=== PATIENT | male | born 1960 | race Caucasian/White ===

== ENCOUNTER 2018-06-25 12:01 | Observation (INO) ==
[2018-06-25] MEDS ORDERED: Vancomycin Consult Pharmacy 1 EACH OTHER SCH ×2 (15:58→22:00)
[2018-06-25] MEDS ORDERED: Vancomycin Inj 1 GM/200 ML PIGGYBACK IV.SIG SCH (16:00)
[2018-06-25] MEDS ORDERED: Dextrose 50% in Water 50 ML Vial IV.PUSH PRN (16:12)
[2018-06-25] MEDS ORDERED: Piperacil/Tazo 3.375 GM Premix 50 ML IV.SIG SCH (17:00)
[2018-06-25] MEDS ORDERED: Temazepam 15 MG Capsule PO PRN (21:00)
[2018-06-25] MEDS: Insulin NovoLOG Aspart Correctional Sugar Inj SQ SCH ×2 (23:10→23:11)
[2018-06-25] MEDS: Piperacil/Tazo 3.375 GM Premix 50 ML IV.SIG SCH (23:11)
[2018-06-26] MEDS: Piperacil/Tazo 3.375 GM Premix 50 ML IV.SIG SCH ×4 (02:43→17:21)
[2018-06-26] MEDS: Vancomycin Inj 1,750 MG in Sodium Chlor 0.9% Inj 500 ML IV.SIG SCH ×2 (03:10→13:35)
[2018-06-26 06:33] LABS: Baso % (Auto) 0.3 % (0.0-2.0); Eos # (Auto) 0.3 th/mm3 (0.0-0.4); Eos % (Auto) 4.3 % (0.0-4.0); Hemoglobin 11.5 gm/dL (13.0-17.0); Lymph # (Auto) 1.7 th/mm3 (1.0-4.8); Lymph % (Auto) 25.7 % (9.0-44.0); Mean Corpuscular Hemoglobin 29.1 pg (27.0-34.0); Mean Corpuscular Volume 88.1 fL (80.0-100.0); Mean Platelet Volume 8.9 fL (7.0-11.0); Mono # (Auto) 0.5 th/mm3 (0.0-0.9); Mono % (Auto) 7.9 % (0.0-8.0); Neut # (Auto) 4.3 th/mm3 (1.8-7.7); Neut % (Auto) 61.8 % (16.0-70.0); Platelet Count 145 th/mm3 (150-450); Red Blood Count 3.97 mil/mm3 (4.50-5.90); Red Cell Distribution Width 11.4 % (11.6-17.2); White Blood Count 6.8 th/mm3 (4.0-11.0)
[2018-06-26 06:41] LABS: Chloride 103 meq/L (98-107); Sodium 138 meq/L (136-145)
[2018-06-26 06:48] LABS: Calcium 8.2 mg/dL (8.5-10.1)
[2018-06-26 06:49] LABS: Anion Gap 5 meq/L (5-15); Blood Urea Nitrogen 12 mg/dL (7-18); Glucose,Random 187 mg/dL (74-106)
[2018-06-26 06:52] LABS: Glomerular Filtration Rate Greater Than 89 mL/min (>89)
[2018-06-26] MEDS: Insulin NovoLOG Aspart Correctional Sugar Inj SQ SCH ×4 (07:44→21:35)
--- NOTE | 2018-06-26 10:18 | P.HP ---
History of Present Illness Primary Care Physician: Praneeth Moya Chief Complaint: Right foot second toe pain and infection History of Present Illness: 57-year-old male with known history of untreated diabetes, hypertension who presented to the hospital because of worsening swelling, pain, infection of the right foot second digit. Patient states that approximately 2 weeks ago he had a corn on his toe and he removed it with a razor blade. Patient was doing well up until 3 days ago when he states that his toe just blew up. Started having significant pain, signs of infection, purulent material. Patient went to the emergency department for evaluation. Patient did have ultrasound done of the lower extremity which did not indicate any embolic event. X-ray did not indicate any acute abnormality other than inflammation. Patient was recommended hospital admission for IV antibiotics. Patient states that he does know he has diabetes but is untreated. He is not taking any blood pressure medications for over a year. Patient denies any fever , chills, chest pain, shortness of breath, nausea, vomiting, polydipsia, polyphagia, polyuria - Diagnosis (1) Diabetic foot infection Inpatient Certification: I certify that the inpatient services were ordered in accordance with Medicare regulations governing the order. This includes certification that hospital inpatient services are reasonable and necessary and in the case of services not specified as inpatient-only under 42 CFR 419.22(n), that they are appropriately provided as inpatient services in accordance to with the 2-midnight benchmark under 43 CFR 412.3(e) Review of Systems All other systems reviewed negative except as stated in HPI Skin/Breast: Reports change in skin color, Reports lesions, Reports non-healing lesions, Reports redness, Reports wounds PMFSH - History History Provided By: Patient - Medical History Medical History: Medical History (Last Reviewed 06/26/18 @ 10:14 by GIORGIO Rendon) Diabetes Hypertension - Surgical History Surgical History: Surgical History (Last Reviewed 06/26/18 @ 10:14 by GIORGIO Rendon) Hx of meniscectomy of right knee - Family History Family History: Family History (Last Updated 06/26/18 @ 10:07 by GIORGIO Rendon) Mother History of diabetes mellitus Father History of diabetes mellitus History of coronary artery disease - Tobacco History Second Hand Smoke Exposure: Yes Tobacco Use In Past 30 Days: Yes Smoking Status: Current every day smoker Tobacco Type: Cigarettes - Alcohol History How Often Do You Have a Drink Containing Alcohol: Never - Substance Use History Substance History: No History of Abuse - Immunization History Tetanus Immunization: Unable to Assess Hx Influenza Vaccine This Season: Yes Medications and Allergies Active Medications: Active Medications Dextrose (D50w Vial) 50 ml IV.PUSH UNSCH PRN PRN Reason: PER HYPOGLYCEMIA PROTOCOL Glucagon (Glucagon Inj) 1 mg OTHER PRN PRN PRN Reason: for Hypoglycemia Protocol Piperacillin/Tazobactam/Dextrose (Zosyn 3.375 Gm Premix) 50 mls @ 100 mls/hr IV.SIG Q6H [facility] Last Infusion: 06/26/18 07:08 Dose: Infused Pharmacy Profile Note (Vancomycin Consult Pharmacy) 0 mls @ 0 mls/hr OTHER UNSCH [facility] Vancomycin HCl 1,750 mg/ (Sodium Chloride) 517.5 mls @ 250 mls/hr IV.SIG Q12H [facility] Last Infusion: 06/26/18 06:18 Dose: Infused Insulin Aspart (Novolog Insulin Correctional Sugar Inj) 0 unit SQ ACHS [facility]; Protocol Last Admin: 06/26/18 07:44 Dose: 3 unit Lactulose (Lactulose Liq) 30 ml PO DAILY PRN PRN Reason: SEVERE CONSITIPATION Lisinopril (Prinivil) 10 mg PO DAILY [facility] Miscellaneous Information ([facility] Ordered Lab Info) 0 each OTHER ONCE@ 1345 ONE Stop: 06/27/18 13:46 Temazepam (Restoril) 15 mg PO HS PRN PRN Reason: INSOMNIA Allergies Allergy/AdvReac Type Severity Reaction Status Date / Time No Known Allergies Allergy Unverified 06/25/18 12:08 Home Medications Medication Instructions Recorded Confirmed Type No Known Home Medications 06/25/18 06/26/18 History Exam Vital signs: Vital Signs 06/25/18 20:00 06/26/18 00:00 06/26/18 08:00 Temperature 97.6 F 98.4 F 96.5 F L Pulse Rate 65 58 L 59 L Respiratory Rate 21 20 20 Blood Pressure 151/82 H 145/78 H 157/79 H Pulse Oximetry 98 97 99 Intake & Output 06/25/18 06/26/18 06/26/18 18:59 06:59 18:59 Intake Total 1070 / 1070 1050 / 1050 Balance 1070 / 1070 1050 / 1050 Weight 98.883 kg Intake: IV 850 / 850 1050 / 1050 LR 1000 mL Inj 1,000 ML @ 100 1000 / 1000 mls/hr IV.CONT .Q10H [facility] Rx#: [id number] Zosyn 3.375 GM Premix 50 ML @ 100 / 100 50 / 50 100 mls/hr IV.SIG Q6H [facility] Rx#: [id number] Vancomycin Inj 1,750 MG In NS 750 / 750 Inj 500 ML @ 250 mls/hr IV.SIG Q12H [facility] Rx#:[id number] Oral 220 / 220 Other: # Voids 1 # Urine Diapers 300 Date of Last Bowel Movement 06/25/18 Weight On Admission 98.883 kg Narrative: GENERAL: Well-developed, well-nourished, in no acute distress. alert and orientated HEENT: Head is normocephalic without any lesions or masses noted. Facial features are symmetric. Eyes: Pupils equal round reactive to light. Extraocular muscles are intact. Conjunctivae were clear. Oropharyngeal: Pharynx without any erythema edema. Tongue is midline without deviation. Buccal mucosa is moist without any masses or lesions NECK: Supple without any masses. Trachea midline no deviation. No JVD, no bruits are appreciated CARDIAC: Regular rhythm, regular rate. S1/S2 are heard. No murmurs gallops or rubs. LUNGS: Clear to auscultation bilaterally. No wheeze, rhonchi or rales. No use of accessory muscles on inspiration or expiration. ABDOMEN: Soft, nontender. Nondistended. Bowel sounds heard in all 4 quadrants. No organomegaly or masses. Negative rebound, negative guarding EXTREMITIES: No edema, pulses are equal bilaterally. No cyanosis or clubbing NEUROLOGY: Mood and affect appear appropriate. Cranial nerves II through XII grossly intact. Muscle strength 5/5 in upper and lower extremities bilaterally. Deep tendon reflexes are 2+ in upper and lower extremities bilaterally. RIGHT FOOT: Second digit has significant abnormality with edema, open wound, purulence, appears to have some epidermal or subcutaneous fluid collections Results - Labs CBC & Chem 7: 06/26/18 05:59 06/26/18 05:59 Labs: Laboratory Results - last 24 hr 06/25/18 06/26/18 06/26/18 23:08 05:59 05:59 CBC w Diff Auto diff final WBC 6.8 RBC 3.97 L Hgb 11.5 L Hct 35.0 L MCV 88.1 D MCH 29.1 MCHC 33.0 RDW 11.4 L Plt Count 145 L MPV 8.9 Neut % (Auto) 61.8 Lymph % (Auto) 25.7 [place] % (Auto) 7.9 Eos % (Auto) 4.3 H Baso % (Auto) 0.3 Neut # (Auto) 4.3 Lymph # (Auto) 1.7 [place] # (Auto) 0.5 Eos # (Auto) 0.3 Baso # (Auto) 0.0 WBC Differential . Differential Comment . Sodium 138 Potassium 4.0 Chloride 103 Carbon Dioxide 30.0 Anion Gap 5 BUN 12 Creatinine 0.64 Estimated GFR Greater than 89 POC Glucose 203 H Random Glucose 187 H D Calcium 8.2 L D 06/26/18 07:06 CBC w Diff WBC RBC Hgb Hct MCV MCH MCHC RDW Plt Count MPV Neut % (Auto) Lymph % (Auto) [place] % (Auto) Eos % (Auto) Baso % (Auto) Neut # (Auto) Lymph # (Auto) [place] # (Auto) Eos # (Auto) Baso # (Auto) WBC Differential Differential Comment Sodium Potassium Chloride Carbon Dioxide Anion Gap BUN Creatinine Estimated GFR POC Glucose 204 H Random Glucose Calcium Caprini VTE Risk Assessment Caprini VTE Risk Assessment: Moderate/High Risk (score >= 2) Caprini Risk Assessment Model: Point Value = 1 Point Value = 2 Point Value = 3 Point Value = 5 Age 41-60 Minor surgery BMI > 25 kg/m2 Swollen legs Varicose veins or History of unexplained or recurrent spontaneous Oral contraceptives or hormone replacement Sepsis (< 1 month) Serious lung disease, including pneumonia (< 1 month) Abnormal pulmonary function Acute myocardial infarction Congestive heart failure (< 1 month) History of inflammatory bowel disease Medical patient at bed rest Age 61-74 Arthroscopic surgery Major open surgery (> 45 min) Laparoscopic surgery (> 45 min) Malignancy Confined to bed (> 72 hours) Immobilizing plaster cast Central venous access Age >= 75 History of VTE Family history of VTE Factor V Leiden Prothrombin [id number] Lupus anticoagulant Anticardiolipin antibodies Elevated serum homocysteine Heparin-induced thrombocytopenia Other congenital or acquired thrombophilia Stroke (< 1 month) Elective arthroplasty Hip, pelvis, or leg fracture Acute spinal cord injury (< 1 month) Prophylaxis Regimen: Total Risk Factor Score Risk Level Prophylaxis Regimen 0-1 Low Early ambulation 2 Moderate Order ONE of the following: *Sequential Compression Device (SCD) *Heparin 5000 units SQ BID 3-4 Higher Order ONE of the following medications: *Heparin 5000 units SQ TID *Enoxaparin/Lovenox 40 mg SQ daily (WT < 150 kg, CrCl > 30 mL/min) *Enoxaparin/Lovenox 30 mg SQ daily (WT < 150 kg, CrCl > 10-29 mL/min) *Enoxaparin/Lovenox 30 mg SQ BID (WT < 150 kg, CrCl > 30 mL/min) AND/OR *Sequential Compression Device (SCD) 5 or more Highest Order ONE of the following medications: *Heparin 5000 units SQ TID (Preferred with Epidurals) *Enoxaparin/Lovenox 40 mg SQ daily (WT < 150 kg, CrCl > 30 mL/min) *Enoxaparin/Lovenox 30 mg SQ daily (WT < 150 kg, CrCl > 10-29 mL/min) *Enoxaparin/Lovenox 30 mg SQ BID (WT < 150 kg, CrCl > 30 mL/min) AND *Sequential Compression Device (SCD) Assessment and Plan - Assessment (1) Diabetic foot infection Code(s): E11.628 - Type 2 diabetes mellitus with other skin complications; L08.9 - Local infection of the skin and subcutaneous tissue, unspecified Status: Acute - Plan Right foot second digit infection, cellulitis -History was quite impressive appearance with edema, exudates, cellulitis -X-ray did not indicate any acute abnormality -Obtain sed rate, C-reactive protein -Obtain MRI with and without contrast to evaluate for osteomyelitis and extent of infection -Consult podiatry for further evaluation, patient will require surgical intervention of some kind -Continue vancomycin and Zosyn for diabetic infection -Continue monitor culture Diabetes, untreated -Obtain hemoglobin A1c -Accu-Cheks with sliding scale insulin Hypertension, untreated -Start lisinopril 10 mg daily DVT prevention -Sequential compression devices
[2018-06-26] MEDS: Lisinopril 10 MG Tablet PO SCH (10:26)
[2018-06-26] MEDS ORDERED: Gadobutrol PF 10 MMOL/10 ML Vial (for RAD) IV.SIG ONE (11:04)
--- NOTE | 2018-06-26 11:26 | MR ---
EXAM DATE: 06/26/2018 11:15 AM EDT AGE/SEX: 57 years / Male INDICATIONS: Osteoarthritis. Wound on dorsal aspect of second digit on right foot. CLINICAL DATA: This is the patient's initial encounter. Patient reports that signs and symptoms have been present for 3 days and indicates a pain score of 0/10. MEDICAL/SURGICAL HISTORY: Hypertension. Diabetes mellitus type II. . Right knee meniscus repai r. COMPARISON: . TECHNIQUE: Multiplanar, multisequence MRI examination was performed without contrast and after th e intravenous administration of 9.9 ml Gadavist (gadobutrol) single exam dose. FINDINGS: On today's examination there is diffuse nonspecific soft tissue swelling involving predominantly the second digit. There is also diffuse nonspecific soft tissue swelling and edema along the dorsum of th e foot. No loculated fluid collections are demonstrated. There is abnormal increased signal within th e bony structures of the second proximal phalanx, middle phalanx and distal phalanx. There is also so me increased postcontrast enhancement in these bony structures. There is normal signal intensity in t he second metatarsal. The rest of the bony structures of the foot demonstrate normal signal intensity . There is good alignment of the bony structures. CONCLUSION: 1. There is abnormal bone marrow edema and increased signal with contrast enhancement involving the second proximal phalanx, middle phalanx and distal phalanx surrounded by soft tissue swelling charact eristic for osteomyelitis. The second metatarsal appears to be within normal limits. 2. There is nonspecific soft tissue edema and swelling along the dorsum of the foot. No loculated fl uid collections are demonstrated. Electronically signed by: Enmanuel Vila MD 06/26/2018 11:25 AM EDT
[2018-06-26] MEDS: Bacitracin Oint 0.9 GM Packet TOPICAL SCH ×2 (15:23→16:18)
--- NOTE | 2018-06-26 15:24 | MB ---
cc: Jackie Herron DATE: 06/26/2018 CHIEF COMPLAINT: Right second digit ulceration. HISTORY OF PRESENT ILLNESS: Mr. Cabrera is a 57-year-old male patient with neglected diabetes and a wound to the right second digit. He states that he just started having symptoms to the right foot about 3 days ago, after shaving a corn off with a razorblade 2 weeks ago. He states that it began to swell and have significant pain and drainage. The patient denies any nausea, vomiting, fever, headaches, or chills. PAST MEDICAL HISTORY: Includes diabetes and hypertension. PAST SURGICAL HISTORY: Includes a meniscectomy of the right knee. FAMILY HISTORY: Noncontributory. SOCIAL HISTORY: The patient denies any alcohol or drug abuse, but is a daily smoker. MEDICATIONS: Please see list. ALLERGIES: NO KNOWN DRUG ALLERGIES. PHYSICAL EXAMINATION: VITAL SIGNS: Temperature is 96.5 with a T-max of 98.4, pulse 57, blood pressure 143/87, pulse oximetry 99% O2 on room air. LABORATORY DATA: White count is 6.8, hemoglobin 11.5, hematocrit 35.0, platelets 145. Sodium 138, potassium 4.0, chloride 103, carbon dioxide 30, BUN 12. Random glucose 209. Hemoglobin A1c pending. C-reactive protein 7.92. RADIOLOGY REPORT: X-rays show no signs of gas in the soft tissue or cortical erosion. MRI shows signs of osteomyelitis in the right second digit. All 3 phalanges and metatarsal are spared. PHYSICAL EXAMINATION: The patient has indurated skin, lack of pedal hair however, he does have palpable DP and PT pulses. Capillary refill time less than 3 seconds. Left foot is unremarkable. Right foot dorsal IPJ second digit ulceration 0.7 x 0.7 x 0.2 cm with a fibrotic base and visible bone of the distal aspect of the proximal phalanx. No excessive drainage or malodor at this time. Erythema circumferentially around the wound. Edema to the entire digit. ASSESSMENT AND PLAN: 1. Right second digit osteomyelitis. - N.p.o. after midnight. Plan for surgical amputation of the right second digit tomorrow at 4:00 p.m. - Continue IV antibiotics. - Wound care orders placed by nursing staff. - Weight bear as tolerated in surgical shoe. Thank you for this consultation and allowing me to be involved in this patient's care. REFUGIO Lopez//lev , 02:15 PM , 02:23 PM SVEN
--- NOTE | 2018-06-26 16:50 | MB ---
cc: David Gonzales MD, Franklyn F MD DATE: 06/26/2018 REQUESTING PHYSICIAN: Vel Burch REASON FOR CONSULTATION: Osteomyelitis of the right second toe, diabetic toe infection. HISTORY OF PRESENT ILLNESS: This is a 57-year-old white male who had a callus at the top of his second toe, which he trimmed himself approximately 3 weeks ago. After that, he developed a wound which was draining at times. He was soaking the foot with Epsom salt and he was using antibacterial ointment on the foot. It became more swollen and red. He continued to have drainage and presented to [facility] in [place]. The foot was noted to be markedly edematous and there was an open wound at the top of the right second toe. A culture was taken and has growth of Staphylococcus aureus, group B beta strep, Pseudomonas and Proteus. The patient was subsequently transferred to [facility] for further evaluation. He was evaluated by podiatry. An MRI of the foot was also performed and shows abnormal bone marrow edema and enhancement involving the second proximal phalanx, middle phalanx and distal phalanx surrounded by soft tissue swelling characteristic of osteomyelitis. The patient is diabetic. He tells me that he does not take any medicine for diabetes. He denies chills. He denies nausea, vomiting, shortness of breath or other symptoms. He states that otherwise he feels fine. He is only complaining of having pain in the right second toe. PAST MEDICAL HISTORY: 1. Diabetes mellitus. 2. Hypertension, 3. History of meniscectomy of the right knee. ALLERGIES: NO KNOWN DRUG ALLERGIES. MEDICATIONS: 1. Vancomycin. 2. Piperacillin/tazobactam. 3. Prinivil 4. Sliding scale insulin. SOCIAL HISTORY: The patient is . The patient is a smoker. He smokes a pack of cigarettes a day. Denies alcohol use. Denies IV drug use. 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 FAMILY HISTORY: Significant for diabetes. REVIEW OF SYSTEMS: All systems have been reviewed and are negative, except for pain in the right great toe. PHYSICAL EXAMINATION: GENERAL: This is a well-developed male who is in no acute distress. He is awake, alert and oriented. VITAL SIGNS: Temperature 96.5, BP 143/87, respirations 20, heart rate 56. HEENT: Head is atraumatic. Extraocular movements grossly intact. Pupils reactive to light. No icterus. Oropharynx - mucosa is moist. No visible lesions. NECK: Supple without adenopathy. LUNGS: Clear breath sounds. No accessory muscle use. CARDIOVASCULAR: Regular S1 and S2. No murmurs, rubs or gallops. ABDOMEN: Bowel sounds present, protuberant, soft, nontender. RECTAL: Not performed. EXTREMITIES: The right leg is markedly swollen all the way up to the calf region and the right foot is also markedly swollen. It is about twice the size of the left. The second toe is markedly swollen as well and about twice the size of the left second toe. There is an area of ulceration at the dorsum of the second toe at the mid aspect with some macerated tissue visible and erythema. Distal pulses intact. SKIN: No diffuse rash. NEUROLOGIC: No gross focal finding. PSYCHIATRIC: Patient is calm and cooperative. LABORATORY DATA: WBC 6.8, platelets 145, 61% neutrophils, 25% lymphocytes, hemoglobin 11.5, creatinine 0.64. Estimated GFR 89. Sodium 138. Sedimentation rate 44. C-reactive protein 7.92. IMPRESSION: 1. Acute osteomyelitis of the right second toe. Polymicrobial organisms including Staphylococcus aureus, group B strep, Pseudomonas and Proteus. The patient was evaluated by podiatry and plans to proceed with amputation of the second digit. 2. Diabetes mellitus. RECOMMENDATIONS: 1. Continue vancomycin. 2. Continue piperacillin/tazobactam. 3. Monitor clinical status. After the patient has amputation, he may just need about 24 to 48 hours of IV antibiotics, depending on the status of his wound. Thank you for this consultation. The patient's progress will be monitored and further recommendations will be given if necessary. MD RAYMUNDO Garcia/ , 03:58 PM , 04:30 PM
[2018-06-26] MEDS ORDERED: Bacitracin Oint 0.9 GM Packet TOPICAL ONE (17:00)
[2018-06-27] MEDS: Piperacil/Tazo 3.375 GM Premix 50 ML IV.SIG SCH ×5 (00:01→23:13)
[2018-06-27 00:10] VITALS: O2SAT 98
[2018-06-27] MEDS: Vancomycin Inj 1,750 MG in Sodium Chlor 0.9% Inj 500 ML IV.SIG SCH ×2 (01:12→14:22)
[2018-06-27] MEDS: Insulin NovoLOG Aspart Correctional Sugar Inj SQ SCH ×4 (08:36→22:12)
[2018-06-27] MEDS: Lisinopril 10 MG Tablet PO SCH ×2 (08:39→21:27)
[2018-06-27 09:20] VITALS: RESP 18
--- NOTE | 2018-06-27 09:30 | P.PN ---
Subjective Interval history: 57-year-old male seen in examined in follow-up for diabetic wound with osteomyelitis. Patient is in good spirits. He is joking around about after the remove his toe maybe they can insert a flashlight or a switch blade in its place. Vital signs are stable. Patient remains afebrile. Physical Exam Vital signs: Vital Signs 06/26/18 12:00 06/26/18 16:00 06/26/18 20:00 Temperature 96.5 F L 97.2 F L 96.3 F L Pulse Rate 56 L 53 L 59 L Respiratory Rate 20 20 16 Blood Pressure 143/87 H 133/71 149/85 H Pulse Oximetry 99 99 100 06/27/18 00:00 06/27/18 08:00 Temperature 96.9 F L 96.4 F L Pulse Rate 50 L 66 Respiratory Rate 16 18 Blood Pressure 126/71 150/73 H Pulse Oximetry 98 98 Intake & Output 06/26/18 06/27/18 06/27/18 18:59 06:59 18:59 Intake Total 2487 / 2487 50 / 50 Balance 2487 / 2487 50 / 50 Weight 99.3 kg 102.7 kg Intake: IV 1670 / 1670 50 / 50 LR 1000 mL Inj 1,000 ML @ 100 1000 / 1000 mls/hr IV.CONT .Q10H [facility] Rx#: [id number] Zosyn 3.375 GM Premix 50 ML @ 150 / 150 50 / 50 100 mls/hr IV.SIG Q6H [facility] Rx#: [id number] Vancomycin Inj 1,750 MG In NS 520 / 520 Inj 500 ML @ 250 mls/hr IV.SIG Q12H [facility] Rx#:[id number] Oral 817 / 817 Other: # Voids 4 3 Date of Last Bowel Movement 06/25/18 # Bowel Movements 0 Narrative: GENERAL: Well-developed, well-nourished, in no acute distress. alert and orientated HEENT: Head is normocephalic without any lesions or masses noted. Facial features are symmetric. Eyes: Extraocular muscles are intact. Conjunctivae were clear. NECK: Supple without any masses. Trachea midline no deviation. No JVD, CARDIAC: Regular rhythm, regular rate. S1/S2 are heard. No murmurs gallops or rubs. LUNGS: Clear to auscultation bilaterally. No wheeze, rhonchi or rales. No use of accessory muscles on inspiration or expiration. ABDOMEN: Soft, nontender. Nondistended. Bowel sounds heard in all 4 quadrants. No organomegaly or masses. Negative rebound, negative guarding EXTREMITIES: No edema, pulses are equal bilaterally. No cyanosis or clubbing NEUROLOGY: Mood and affect appear appropriate. Cranial nerves II through XII grossly intact. Moving all extremities, speech is clear RIGHT FOOT: Second digit has significant abnormality with edema, open wound, purulence, Results - Labs CBC & Chem 7: 06/26/18 05:59 06/26/18 05:59 Laboratory Results - last 24 hr 06/26/18 06/26/18 06/26/18 05:59 05:59 11:31 ESR 44 H POC Glucose 209 H Hemoglobin A1c C-Reactive Protein 7.92 H 06/26/18 06/26/18 06/26/18 14:32 16:30 21:35 ESR POC Glucose 242 H 242 H Hemoglobin A1c 11.0 H C-Reactive Protein 06/27/18 07:42 ESR POC Glucose 152 H Hemoglobin A1c C-Reactive Protein - Imaging Impressions Foot MRI 06/26/18 00:00 CONCLUSION: 1. There is abnormal bone marrow edema and increased signal with contrast enhancement involving the second proximal phalanx, middle phalanx and distal phalanx surrounded by soft tissue swelling characteristic for osteomyelitis. The second metatarsal appears to be within normal limits. 2. There is nonspecific soft tissue edema and swelling along the dorsum of the foot. No loculated fluid collections are demonstrated. Assessment and Plan - Assessment (1) Diabetic foot infection Code(s): E11.628 - Type 2 diabetes mellitus with other skin complications; L08.9 - Local infection of the skin and subcutaneous tissue, unspecified Status: Acute - Plan Right foot second digit infection, osteomyelitis -History was quite impressive appearance with edema, exudates, cellulitis -X-ray did not indicate any acute abnormality -Sed rate and C-reactive protein were both elevated -MRI of the foot did indicate significant osteomyelitis -Consulted podiatry for further evaluation, plans for surgical intervention with amputation today at 4 PM -Consulted infectious disease who indicated that after amputation patient may only require 24-48 hours of IV antibiotics -Continue vancomycin and Zosyn for diabetic infection -Continue monitor culture, preliminary growing Pseudomonas, group B beta strep, staph aureus Diabetes, untreated -Hemoglobin A1c 11.0 -Accu-Cheks with sliding scale insulin, only received 12 units of insulin yesterday -Patient will likely be started on oral hypoglycemic agents prior to discharge, need to wait at least 48 hours after contrasted study Hypertension, untreated -Increase lisinopril 10 mg twice daily DVT prevention -Sequential compression devices
[2018-06-27] MEDS: Bacitracin Oint 0.9 GM Packet TOPICAL SCH (09:54)
[2018-06-27] MEDS ORDERED: Pharmacy Ordered Lab Info OTHER ONE (13:45)
[2018-06-27] MEDS ORDERED: Bupivacaine PF 0.5% Inj 10 ML Vial ONE ×2 (15:33→15:34)
[2018-06-27] MEDS ORDERED: Neomycin/Polymyxin G.U. Irrigant 1 ML Ampul ONE (15:35)
[2018-06-27] MEDS ORDERED: fentaNYL Citrate Inj 100 MCG/2 ML Ampul ONE (15:45)
[2018-06-27] MEDS ORDERED: Chlorhexidine Gluconate 2% 1 Pack (2 Cloths) TOPICAL SCH (16:15)
[2018-06-27] MEDS ORDERED: Sodium Chlor 0.9% Inj 500 ML IV.SIG SCH (17:00)
--- NOTE | 2018-06-27 17:30 | XR ---
EXAM DATE: 06/27/2018 5:21 PM EDT AGE/SEX: 57 years / Male INDICATIONS: Post op right 2nd digit amputation CLINICAL DATA: This is the patient's initial encounter. Patient reports that signs and symptoms have been present for 1 day and indicates a pain score of 0/10. MEDICAL/SURGICAL HISTORY: Diabetes mellitus type II. None. COMPARISON: [facility], TOE RIGHT 2ND DIGIT MIN2V, 06/25/2018. . FINDINGS: Postoperative examination demonstrates amputation of the right of the second digit. No retained forei gn body is seen. Remainder the osseous structures are intact. CONCLUSION: Amputation of the second digit as above. Electronically signed by: Tex Wagoner MD 06/27/2018 5:28 PM EDT
[2018-06-27] MEDS ORDERED: oxyCODONE/Acetaminophen 10/325 Tablet PO PRN (22:55)
[2018-06-28] MEDS: Vancomycin Inj 1,750 MG in Sodium Chlor 0.9% Inj 500 ML IV.SIG SCH ×2 (01:37→14:28)
[2018-06-28] MEDS: Piperacil/Tazo 3.375 GM Premix 50 ML IV.SIG SCH ×2 (06:06→13:18)
[2018-06-28] MEDS: Insulin NovoLOG Aspart Correctional Sugar Inj SQ SCH ×3 (08:15→17:18)
[2018-06-28] MEDS: Lisinopril 10 MG Tablet PO SCH (08:16)
--- NOTE | 2018-06-28 10:25 | P.PN ---
Subjective Interval history: 57-year-old male seen and examined today in follow-up for osteomyelitis. Patient did undergo amputation of the toe yesterday afternoon. Patient is sitting in bed comfortably. Vital signs are stable, patient afebrile. Patient does want to go home. Will need to await podiatry clearance prior to discharge. Physical Exam Vital signs: Vital Signs 06/27/18 12:00 06/27/18 15:53 06/27/18 16:00 Temperature 97.3 F L 98.0 F 97.1 F L Pulse Rate 61 72 62 Respiratory Rate 18 16 18 Blood Pressure 151/95 H 168/85 H 160/83 H Pulse Oximetry 99 96 06/27/18 16:55 06/27/18 17:05 06/27/18 17:20 Temperature 97.7 F Pulse Rate 70 63 63 Respiratory Rate 14 14 14 Blood Pressure 137/76 140/78 155/85 H Pulse Oximetry 96 98 97 06/27/18 17:36 06/27/18 20:00 06/28/18 00:00 Temperature 97.7 F 97.8 F 98.0 F Pulse Rate 70 70 78 Respiratory Rate 14 16 16 Blood Pressure 150/81 H 108/52 L 110/60 Pulse Oximetry 100 99 100 06/28/18 07:24 06/28/18 08:00 Temperature 98 F Pulse Rate 59 L Respiratory Rate 20 17 Blood Pressure 151/79 H Pulse Oximetry 97 Intake & Output 06/27/18 06/28/18 06/28/18 18:59 06:59 18:59 Intake Total 1577.5 / 1577.5 617.5 / 617.5 Balance 1577.5 / 1577.5 617.5 / 617.5 Weight 44.853 kg Intake: IV 917.5 / 917.5 617.5 / 617.5 LR 1000 mL Inj 1,000 ML @ 30 300 / 300 mls/hr IV.SIG .Q24H [facility] Rx#: [id number] Zosyn 3.375 GM Premix 50 ML @ 100 / 100 100 / 100 100 mls/hr IV.SIG Q6H [facility] Rx#: [id number] Vancomycin Inj 1,750 MG In NS 517.5 / 517.5 517.5 / 517.5 Inj 500 ML @ 250 mls/hr IV.SIG Q12H [facility] Rx#:[id number] Oral 360 / 360 Anesthesia Amount 300 / 300 Other: # Voids 3 Date of Last Bowel Movement 06/25/18 # Bowel Movements 0 Narrative: GENERAL: Well-developed, well-nourished, in no acute distress. alert and orientated HEENT: Head is normocephalic without any lesions or masses noted. Facial features are symmetric. Eyes: Extraocular muscles are intact. Conjunctivae were clear. NECK: Supple without any masses. Trachea midline no deviation. No JVD, CARDIAC: Regular rhythm, regular rate. S1/S2 are heard. No murmurs gallops or rubs. LUNGS: Clear to auscultation bilaterally. No wheeze, rhonchi or rales. No use of accessory muscles on inspiration or expiration. ABDOMEN: Soft, nontender. Nondistended. Bowel sounds heard in all 4 quadrants. No organomegaly or masses. Negative rebound, negative guarding EXTREMITIES: No edema, pulses are equal bilaterally. No cyanosis or clubbing NEUROLOGY: Mood and affect appear appropriate. Cranial nerves II through XII grossly intact. Moving all extremities, speech is clear RIGHT FOOT: Foot is bandaged with the obvious missing of the second digit of the right foot Results - Labs CBC & Chem 7: 06/26/18 05:59 06/26/18 05:59 Laboratory Results - last 24 hr 06/27/18 06/27/18 06/27/18 12:21 13:50 17:22 POC Glucose 146 H 121 H Vancomycin Trough 12.3 H 06/27/18 06/28/18 22:07 07:21 POC Glucose 333 H 172 H Vancomycin Trough - Imaging Impressions Foot X-Ray 06/27/18 00:00 CONCLUSION: Amputation of the second digit as above. Assessment and Plan - Assessment (1) Diabetic foot infection Code(s): E11.628 - Type 2 diabetes mellitus with other skin complications; L08.9 - Local infection of the skin and subcutaneous tissue, unspecified Status: Acute - Plan Right foot second digit infection, osteomyelitis -History was quite impressive appearance with edema, exudates, cellulitis -X-ray did not indicate any acute abnormality -Sed rate and C-reactive protein were both elevated -MRI of the foot did indicate significant osteomyelitis -Consulted podiatry for further evaluation, patient underwent amputation of the right foot second digit. -Consulted infectious disease who indicated that after amputation patient may only require 24-48 hours of IV antibiotics -Continue vancomycin and Zosyn for diabetic infection -Continue monitor culture, preliminary growing Pseudomonas, group B beta strep, staph aureus Diabetes, untreated -Hemoglobin A1c 11.0 -Accu-Cheks with sliding scale insulin, only received 7 units of insulin yesterday -Patient will likely be started on oral hypoglycemic agents prior to discharge, need to wait at least 48 hours after contrasted study Hypertension, untreated -lisinopril 10 mg twice daily DVT prevention -Sequential compression devices Discharge Planning: Discharge planning once cleared by podiatry.
[2018-06-28] MEDS: Bacitracin Oint 0.9 GM Packet TOPICAL SCH (10:37)
--- NOTE | 2018-06-28 16:47 | P.PNID ---
Subjective Remarks: Patient is post right second toe amputation. No complaints. Afebrile. Antibiotics: Vancomycin Piperacillin/tazobactam. Lines: Peripheral IV catheter Past Medical History: Diabetes mellitus. Hypertension, History of meniscectomy of the right knee. Allergies/Adverse Reactions: Allergies No Known Allergies Allergy (Unverified 06/25/18 12:08) Objective Vital Signs 06/27/18 16:55 06/27/18 17:05 06/27/18 17:20 Temperature 97.7 F Pulse Rate 70 63 63 Respiratory Rate 14 14 14 Blood Pressure 137/76 140/78 155/85 H Pulse Oximetry 96 98 97 06/27/18 17:36 06/27/18 20:00 06/28/18 00:00 Temperature 97.7 F 97.8 F 98.0 F Pulse Rate 70 70 78 Respiratory Rate 14 16 16 Blood Pressure 150/81 H 108/52 L 110/60 Pulse Oximetry 100 99 100 06/28/18 07:24 06/28/18 08:00 06/28/18 11:06 Temperature 98 F 97.4 F L Pulse Rate 59 L 68 Respiratory Rate 20 17 20 Blood Pressure 151/79 H 144/94 H Pulse Oximetry 97 99 06/28/18 12:00 06/28/18 15:05 06/28/18 16:00 Temperature 97.8 F Pulse Rate 64 Respiratory Rate 17 20 18 Blood Pressure 148/86 H Pulse Oximetry 98 Intake & Output 06/27/18 06/28/18 06/28/18 18:59 06:59 18:59 Intake Total 1577.5 / 1577.5 617.5 / 617.5 100 / 100 Balance 1577.5 / 1577.5 617.5 / 617.5 100 / 100 Weight 44.853 kg Intake: IV 917.5 / 917.5 617.5 / 617.5 100 / 100 LR 1000 mL Inj 1,000 ML @ 30 300 / 300 mls/hr IV.SIG .Q24H [facility] Rx#: [id number] Zosyn 3.375 GM Premix 50 ML @ 100 / 100 100 / 100 100 / 100 100 mls/hr IV.SIG Q6H [facility] Rx#: [id number] Vancomycin Inj 1,750 MG In NS 517.5 / 517.5 517.5 / 517.5 Inj 500 ML @ 250 mls/hr IV.SIG Q12H [facility] Rx#:[id number] Oral 360 / 360 Anesthesia Amount 300 / 300 Other: # Voids 3 Date of Last Bowel Movement 06/25/18 # Bowel Movements 0 Lab - Chemistry Results 06/26/18 06/26/18 06/27/18 14:32 21:35 07:42 POC Glucose 242 H 152 H Hemoglobin A1c 11.0 H 06/27/18 06/27/18 06/27/18 12:21 17:22 22:07 POC Glucose 146 H 121 H 333 H Hemoglobin A1c 06/28/18 06/28/18 06/28/18 07:21 11:04 16:16 POC Glucose 172 H 178 H 157 H Hemoglobin A1c Imaging: ITS Impressions Foot MRI 06/26/18 00:00 CONCLUSION: 1. There is abnormal bone marrow edema and increased signal with contrast enhancement involving the second proximal phalanx, middle phalanx and distal phalanx surrounded by soft tissue swelling characteristic for osteomyelitis. The second metatarsal appears to be within normal limits. 2. There is nonspecific soft tissue edema and swelling along the dorsum of the foot. No loculated fluid collections are demonstrated. Foot X-Ray 06/27/18 00:00 CONCLUSION: Amputation of the second digit as above. Physical Exam: GENERAL: No acute distress. Awake, alert and oriented. HEENT: Head is atraumatic. No icterus. Oropharynx - mucosa is moist. No visible lesions. NECK: Supple without adenopathy. LUNGS: Clear breath sounds. No accessory muscle use. CARDIOVASCULAR: Regular S1 and S2. No murmurs, rubs or gallops. EXTREMITIES: The right leg swelling is markedly decreased. Surgical dressing in place. Distal pulses intact. SKIN: No diffuse rash. NEUROLOGIC: No gross focal finding. PSYCHIATRIC: Calm and cooperative. Assessment and Plan - Plan IMPRESSION: 1. Acute osteomyelitis of the right second toe. Polymicrobial organisms including Staphylococcus aureus, group B strep, Pseudomonas. Post second digital amputation. 2. Diabetes mellitus. Stable. RECOMMENDATIONS: 1. Stop vancomycin. 2. Stop piperacillin/tazobactam. 3. Okay to discharge on Keflex 500 mg p.o. 4 times daily and Levaquin 500 mg p.o. daily 7 days. Discussed with Vel ALVARES.
--- NOTE | 2018-06-28 16:51 | P.DS ---
Date of admission: 06/25/18 19:08 Primary care physician: Praneeth Moya Attending physician on discharge: Jesse Anne Anticipated date of discharge: 06/28/18 Brief History from admission: 57-year-old male with known history of untreated diabetes, hypertension who presented to the hospital because of worsening swelling, pain, infection of the right foot second digit. Patient states that approximately 2 weeks ago he had a corn on his toe and he removed it with a razor blade. Patient was doing well up until 3 days ago when he states that his toe just blew up. Started having significant pain, signs of infection, purulent material. Patient went to the emergency department for evaluation. Patient did have ultrasound done of the lower extremity which did not indicate any embolic event. X-ray did not indicate any acute abnormality other than inflammation. Patient was recommended hospital admission for IV antibiotics. Patient states that he does know he has diabetes but is untreated. He is not taking any blood pressure medications for over a year. Patient denies any fever , chills, chest pain, shortness of breath, nausea, vomiting, polydipsia, polyphagia, polyuria DS: Diagnosis - Discharge Diagnosis (1) Diabetic foot infection Status: Acute DS: Medications - Discharge Medications Prescriptions: cephalexin [Keflex] 500 mg PO QID #28 cap levofloxacin [Levaquin] 500 mg PO DAILY #7 tab lisinopril 10 mg PO BID #60 tab metformin 500 mg PO BID #60 tab oxycodone-acetaminophen 1 tab PO Q4H PRN #12 tab PRN Reason: Acute Pain DS: Summary Hospital Course: 57-year-old male who originally presented to the hospital with a right foot second digit infection. Patient with untreated diabetes and hypertension who presented because of worsening swelling and pain of the right foot second digit. Patient had x-ray studies performed which did not indicate any acute abnormality. Patient did undergo MRI study which did show significant osteomyelitis of the joints of the right foot second digit. Podiatry was consulted who took the patient to surgical procedure for complete irritation of the right foot second digit. Infectious disease consulted secondary to the osteomyelitis. Patient was started on empirical antibiotics to include vancomycin and Zosyn. After cultures were performed did show Pseudomonas species, group B beta strep, staph aureus. Is recommended by ironing machine operator the patient should remain on broad-spectrum antibiotics for at least another 7 days upon discharge. Case was discussed with infectious disease who recommended Levaquin and Keflex for 7 days. Care Transport Nurse plans on following up patient in her office. She notified the patient not to change her own Band- Aids that they will do it in her office next week. Patient is and postop shoe at this time. Patient is to be nonweightbearing of that right lower extremity. Patient does have untreated diabetes in which hemoglobin A1c was 11.0, however during his stay in the hospital he is only required minimal amounts of insulin for glucose control. Patient will be started on metformin 500 mg twice daily upon discharge. Patient should follow up with biomedical doctor for further evaluation management and diabetic control. Patient does have a glucometer at home and patient was notified to check his blood glucose at least twice daily. Patient also came in with elevated blood pressure. He was started on lisinopril 10 mg daily. Blood pressure seem to be controlled when he was in the hospital. Patient will be continued on lisinopril. Patient clinically stable at this time. We will plan discharge accordingly. - Time Spent with Patient Total time spent providing and/or coordinating discharge services: Greater than 30 minutes - Quality: VTE Deep Vein Thrombosis/Pulmonary Embolism Present on Admission: No Exam Vital signs: Vital Signs 06/27/18 16:55 06/27/18 17:05 06/27/18 17:20 Temperature 97.7 F Pulse Rate 70 63 63 Respiratory Rate 14 14 14 Blood Pressure 137/76 140/78 155/85 H Pulse Oximetry 96 98 97 06/27/18 17:36 06/27/18 20:00 06/28/18 00:00 Temperature 97.7 F 97.8 F 98.0 F Pulse Rate 70 70 78 Respiratory Rate 14 16 16 Blood Pressure 150/81 H 108/52 L 110/60 Pulse Oximetry 100 99 100 06/28/18 07:24 06/28/18 08:00 06/28/18 11:06 Temperature 98 F 97.4 F L Pulse Rate 59 L 68 Respiratory Rate 20 17 20 Blood Pressure 151/79 H 144/94 H Pulse Oximetry 97 99 06/28/18 12:00 06/28/18 15:05 06/28/18 16:00 Temperature 97.8 F Pulse Rate 64 Respiratory Rate 17 20 18 Blood Pressure 148/86 H Pulse Oximetry 98 Intake & Output 06/27/18 06/28/18 06/28/18 18:59 06:59 18:59 Intake Total 1577.5 / 1577.5 617.5 / 617.5 617.5 / 617.5 Balance 1577.5 / 1577.5 617.5 / 617.5 617.5 / 617.5 Weight 44.853 kg Intake: IV 917.5 / 917.5 617.5 / 617.5 617.5 / 617.5 LR 1000 mL Inj 1,000 ML @ 30 300 / 300 mls/hr IV.SIG .Q24H [facility] Rx#: [id number] Zosyn 3.375 GM Premix 50 ML @ 100 / 100 100 / 100 100 / 100 100 mls/hr IV.SIG Q6H [facility] Rx#: [id number] Vancomycin Inj 1,750 MG In NS 517.5 / 517.5 517.5 / 517.5 517.5 / 517.5 Inj 500 ML @ 250 mls/hr IV.SIG Q12H [facility] Rx#:[id number] Oral 360 / 360 Anesthesia Amount 300 / 300 Other: # Voids 3 Date of Last Bowel Movement 06/25/18 # Bowel Movements 0 Results Procedures completed during hospitalization: 06/27/18: Patient underwent amputation of the right foot second digit Pending studies at discharge: Pending at discharge 06/27/18 Surgical [PTH] Routine Labs on day of discharge: Labs from last 24 hours 06/28/18 06/28/18 06/28/18 16:16 11:04 07:21 POC Glucose 157 H 178 H 172 H 06/27/18 06/27/18 22:07 17:22 POC Glucose 333 H 121 H - Impressions ITS Impressions Foot MRI 06/26/18 00:00 CONCLUSION: 1. There is abnormal bone marrow edema and increased signal with contrast enhancement involving the second proximal phalanx, middle phalanx and distal phalanx surrounded by soft tissue swelling characteristic for osteomyelitis. The second metatarsal appears to be within normal limits. 2. There is nonspecific soft tissue edema and swelling along the dorsum of the foot. No loculated fluid collections are demonstrated. Foot X-Ray 06/27/18 00:00 CONCLUSION: Amputation of the second digit as above. Discharge Plan - Discharge Disposition Patient Disposition: Discharge Home - Discharge Condition Condition: Stable - Discharge Order Discharge Orders: Discharge Order (Routine); Ordered 06/28/18 Ordered By: Vel Burch - Discharge Details Anticipated Discharge Date: 06/28/18 - Physicians Team Primary Care Provider: Praneeth Moya Attending Provider: Jesse Anne Other Providers: Jackie Herron DPM ; David Gonzales MD - Rxs /Orders / Referrals /Forms Prescriptions: New cephalexin [Keflex] 500 mg Capsule 500 mg PO QID Qty: 28 RF: 0 levofloxacin [Levaquin] 500 mg Tablet 500 mg PO DAILY Qty: 7 RF: 0 lisinopril 10 mg Tablet 10 mg PO BID Qty: 60 RF: 0 metformin 500 mg Tablet 500 mg PO BID Qty: 60 RF: 0 oxycodone-acetaminophen 5-325 mg Tablet 1 tab PO Q4H PRN (Reason: Acute Pain) Qty: 12 RF: 0 No Action No Known Home Medications Referrals: Jackie Herron DPM [Physician] - 07/03/18 ( APT ALREADY MADE WITH [facility] DRIVER If you cannot make this appointment, please call the office to reschedule ) Praneeth Moya M.D. [Primary Care Provider] - See Instructions (PLEASE SCHEDULE APT W/ PCP WITHIN 7-10 DAYS AFTER DISCHARGE) - Discharge Instructions Patient Printed Instructions: Cephalexin (By mouth), Lisinopril (By mouth), Oxycodone/Acetaminophen (By mouth), Metformin (By mouth), Levofloxacin (By mouth ), Foot Care for People with Diabetes (ED), Foot Care for People with Diabetes ( DC), Foot Care for People with Diabetes (GEN), Diabetic Foot Ulcers (ED), Toe Amputation (DC) - Post Discharge Care Plan Care Plan Goals: Your Health Problems: Goals to Promote Your Health: * To prevent worsening of your condition * To maintain your health at the optimal level Directions to Meet Your Goals: * Take your medications as prescribed * Follow your dietary instruction * Follow activity as directed * Keep your appointments as scheduled * Take your immunizations and boosters as scheduled * If your symptoms worsen call your PCP * If no PCP go to Urgent Care or Emergency Room Smoking is dangerous to your health. Avoid second hand smoke. You may reach the 24-hour crisis hotline for domestic abuse at .
[2018-07-01 18:06] VITALS: BP 148/86; PULSE 64; TEMP 97.8
--- NOTE | 2018-08-04 07:29 | MP ---
cc: Jackie Herron DPM DATE OF OPERATION: 07/28/2018 SURGEON: Dr. Jackie Herron SALES REPRESENTATIVE: Staff provided registrar assistant. PREOPERATIVE DIAGNOSIS: Right second digit osteomyelitis. POSTOPERATIVE DIAGNOSIS: Right second digit osteomyelitis. PROCEDURE PERFORMED: Right foot second digit amputation. PATHOLOGY SENT: Right foot second digit. ANESTHESIA: General. HEMOSTASIS: Anatomical dissection. ESTIMATED BLOOD LOSS: Less than 5 mL INJECTABLES: None. MATERIALS USED: 3-0 Prolene. COMPLICATIONS: None. INDICATIONS: Mr. Cabrera was a patient that I met in the hospital as he was a consult for suspected osteomyelitis of the right second digit. This was confirmed on imaging to be in all 3 phalanges. He had exposed bone when evaluated at the bedside. The patient's case appears too far progressed for IV antibiotics and we discussed the option of amputation. He was agreeable to the amputation and the consent was signed. The procedure was explained. No guarantees were given. PROCEDURE: Under mild sedation, the patient was brought to the operating room, placed on the operating table in the supine position. Following IV sedation, the foot was then scrubbed, prepped and draped in the usual aseptic manner. Attention was directed to the second digit where there was a dorsal foot PIPJ with exposed bone. Two semi-elliptical incisions were created, one medial and one lateral to the second digit at the level of the MPJ. This was deepened through skin and subcutaneous tissue with care being taken to identify and retract any vital neurovascular structures. The MPJ was circumscribed with a sharp #15 scalpel blade and the toe was disarticulated and removed from the field in toto. The tendons were cut away from the incision site and the area was flushed with copious amounts of sterile saline. The metatarsal head appeared to be healthy and intact. The skin was closed using 3-0 Prolene with minimal tension on the incision line. A sterile dressing of Xeroform, 4 x 4's, cast padding and a light Yasmany bandage were applied. The patient tolerated the procedure and the anesthesia well. He will recover in the PACU for a period of time before being discharged home with written and oral postoperative instructions. Jackie Herron DPM LMW/SB , 04:58 PM , 05:04 PM
== END 2018-06-28 17:35 | disposition home or self-care (01) ==
LOC: NEDDLT 12:01 → INTOOBSV 19:08 → PH3 19:08
PROVIDERS: ADMIT Family Medicine; ATTEND Family Medicine